=== PATIENT | male | born 1965 | race African-American/Black ===

== ENCOUNTER 2017-04-09 15:47 | Emergency (ER) | payer MEDICAID, OTHER ==
[~2017-04-09] VITALS: Ht 180.3 cm; Wt 93.5 kg
[~2017-04-09 15:47] MED LIST: CIPR500T8 PO; HYDR-3138 PO; SENN1TAB7 PO; SULF1TAB3 PO
[2017-04-09 15:49] VITALS: BP 156/99
[2017-04-09] MEDS ORDERED: LIDOCAINE 1%, 20ML ONE (17:17)
[2017-04-09] MEDS ORDERED: CEFTRIAXONE 250 MG ONE (17:17)
[2017-04-09] MEDS ORDERED: AZITHROMYCIN 250 MG TABLET ONE (17:20)
[2017-04-09] MEDS ORDERED: CEFTRIAXONE 250 MG IM ONE (17:30)
[2017-04-09] MEDS ORDERED: AZITHROMYCIN 500 MG TABLET PO ONE (17:30)
== END 2017-04-09 17:42 | disposition home or self-care (01) ==
LOC: ED 17:30
DX: Z20.2 Contact with and (suspected) exposure to infections with a predominantly sexual mode of transmission (principal)
CPT/HCPCS: 87491; 87591; 96372; 99284; J0696

== ENCOUNTER → 2020-11-08 | Outpatient (CLI) | payer OTHER ==
[~2020-11-08] MED LIST changes: -HYDR-3138 PO; +HYDR-3237 PO; +SENN-177 PO; -SENN1TAB7 PO; +SULF-169 PO; -SULF1TAB3 PO
== END | disposition home or self-care (01) ==
LOC: RAD 09:36
PROVIDERS: ATTEND Urology
DX: N20.0 Calculus of kidney (principal); N13.30 Unspecified hydronephrosis
CPT/HCPCS: 74176